=== PATIENT | female | born 1985 | race Caucasian/White ===

== ENCOUNTER 2017-03-05 14:58 | Emergency (ER) | payer OTHER ==
--- NOTE | ~2017-03-05 | CR243 ---
[facility]. [facility] A Service of [facility] RADIOLOGY TEXT RESULTS PATIENT: ESHA PURCELL LOCATION: SED : 86 UNIT #: [id number] AGE: [address]: YULIET NICHOLSON SEX: F ORDER DR: [id number] [place] [id number] E MR#: [id number] Acc #: [id number] NAME: ESHA PURCELL : 1985 SEX: F STUDY DATE/TIME: 03/05/2017 16:13 UNIT: SED ROOM: STUDY DESCRIPTION: CR Thoracic Spine 3 Views Attending Physician: Yuliet Nicholson Aprn Ordering Physician: Yuliet Nicholson Aprn Primary Care Physician: Fernando Infante M.D. MEDICAL IMAGING REPORT This report is preliminary unless electronic signature is present. EXAM Thoracic spine 3 views INDICATION Back pain for 4 days. COMPARISON No comparisons. FINDINGS There is very mild multilevel degenerative disc space narrowing. Vertebral body heights and alignment are maintained. IMPRESSION No acute thoracic spine abnormality. Dictated by... Alvaro Gonzales M.D. THIS IS AN ELECTRONICALLY VERIFIED REPORT Alvaro Gonzales M.D. at 03/07/2017 7:24 AM MILAGRO/laura TD: 03/05/2017 22:15 JOB #: [id number] MEDICAL IMAGING REPORT Page 1 of 1
--- NOTE | ~2017-03-05 | CR181 ---
[facility]. [facility] A Service of [facility] & [facility] RADIOLOGY TEXT RESULTS PATIENT: ESHA PURCELL LOCATION: SED : 86 UNIT #: [id number] AGE: [address]: YULIET NICHOLSON SEX: F ORDER DR: [id number] [place] [id number] E MR#: [id number] Acc #: [id number] NAME: ESHA PURCELL : 1985 SEX: F STUDY DATE/TIME: 03/05/2017 16:13 UNIT: SED ROOM: STUDY DESCRIPTION: CR Lumbar Spine 2 or 3 Views Attending Physician: Yuliet Nicholson Aprn Ordering Physician: Yuliet Nicholson Aprn Primary Care Physician: Fernando Infante M.D. MEDICAL IMAGING REPORT This report is preliminary unless electronic signature is present. EXAM Lumbar spine 3 views. INDICATION Back pain for 4 days. COMPARISON No comparisons. FINDINGS Vertebral body heights, alignment and disc spaces are maintained. IMPRESSION Negative. Dictated by... Alvaro Gonzales M.D. THIS IS AN ELECTRONICALLY VERIFIED REPORT Alvaro Gonzales M.D. at 03/07/2017 7:24 AM MILAGRO/laura TD: 03/05/2017 22:14 JOB #: [id number] MEDICAL IMAGING REPORT Page 1 of 1
[~2017-03-05 14:58] MED LIST: ABILIFY; ABILIFY PO; ABILIFY20 MG PO; ABILIFY30 MG; ABILIFY30 MG PO; ACETAMINOPHEN PO; ACID REDUCER75 M1 PO; ALBUTEROL0.83 MG/ML IH; ALBUTEROL17 GM; ALBUTEROL17 GM INH; AMOXICILLIN875 MG PO; AMOXIL875 MG PO; AUGMENTIN PO; BACTRIM 400-801 TA1 PO; BACTRIM DS TABL1 TA1 PO; BAYER ASPIRIN325 M1 PO; BENADRYL25 M3 PO; BIRTH CONTROL PILL PO; CELEXA PO; CHANTIX PO; CIPRO PO; COMBIVENT14.7 GM INH; DEPAKOTE PO; DEPO-PROVE150 MG/1 M IM; DEPO-PROVER150 MG/ML; DESYREL150 M1 PO; DICLOFENAC PO; DICLOFENAC SODI50 MG PO; DICYCLOMINE HCL20 MG PO; DIFLUCAN100 MG PO; DOCUSATE SODIU100 MG PO; ESKALITH PO; FLEXERIL PO; FLEXERIL10 MG PO; FLONASE 0.05% N16 G1; FLONASE16 GM; GABAPENTIN600 MG PO; IBUPROFEN PO; IBUPROFEN800 MG PO; KLONOPIN PO; KLONOPIN0.5 MG; KLONOPIN1 MG PO; LAMISIL PO; LASIX PO; LASIX20 MG; LORTAB 5/500 TA1 TA1; LORTAB 7.5-5001 TAB PO; LOTRIMIN 1% CR30 GM; LYRICA PO; MAGIC MOUTH WASH PO; MEDROL PO; MELATONIN3 MG; MOTRIN600 M1 PO; NAPROSYN-EC500 M1 PO; NAPROSYN500 MG PO; NEURONTIN; NEURONTIN800 MG PO; NO MEDICATIONS; OLANZAPINE ODT20 MG PO; ORTHO TRI-7 DAYS X PO; PEPCID PO; PERCOCET 10/3251 TAB PO; PERCOCET10 PO; PHENERGAN DM1 ML PO; PHENERGAN W/CO120 ML PO; PHENERGAN25 M1 PO; PHENERGAN25 MG; PHENERGAN25 MG PO; PREDNISONE PO; PRENATAL1 TA1 PO; PRILOSEC PO; PROCTOSOL-HC28.35 GM RC; PROZAC PO; QVAR7.3 G1; REGLAN PO; REGLAN5 MG PO; ROBAXIN PO; ROBITUSSIN-DM120 ML PO; SEROQUEL PO; SEROQUEL300 MG PO; SKELAXIN PO; SODIUM PHOSPHATE; SOMA PO; SUDAFED30 M1 PO; SYNTHROID PO; SYNTHROID0.2 MG PO; THORAZINE50 MG PO; TIROSINT50 MCG PO; TOPAMAX200 MG; TOPAMAX25 MG PO; TOPAMAX50 MG PO; ULTRAM PO; VESICARE PO; VIBRAMYCIN100 M1 PO; VICODIN 5/1 TAB 5/50 PO; VICODIN 5/500 T1 TAB PO; VISTARIL PO; VITAMIN D50000 UNIT PO; VOLTAREN75 MG PO; XANAX1 MG PO; XODOL 7.5-3001 EACH PO; ZITHROMAX PO; ZOFRAN ODT4 MG PO; ZOFRAN PO; ZOFRANODT PO; ZOLOFT50 MG PO; ZYRTEC10 M2; [UNRECOGNIZED DRUG - OTHER]; [UNRECOGNIZED DRUG - OTHER]
[2017-03-05] MEDS ORDERED: PHENERGAN (15:14)
[2017-03-05] MEDS ORDERED: ALBUTEROL17 GM (15:14)
[2017-03-05] MEDS ORDERED: GRALISE1 EACH (15:14)
[2017-03-05] MEDS ORDERED: SYNTHROID0.05 MG (15:14)
[2017-03-05 16:54] LABS: URINE SOURCE CLEAN CATCH
[2017-03-05 16:55] LABS: BASOPHIL# 0.1 X10e3 (0-0.3); EOSINOPHIL# 0.2 X10e3 (0-0.7); HEMATOCRIT 45.5 % (35.0-45.0); HEMOGLOBIN 15.5 gm/dL (12.0-16.0); LYMPHOCYTE# 3.7 X10e3 (1.0-3.5); LYMPHOCYTE% 32.9 % (17.0-45.0); MEAN CELL VOLUME 89.7 FL (83-96); MEAN CORPUSCULAR HEMOGLOBIN 30.7 PG (28-34); MEAN CORPUSCULAR HGB CONC 34.2 g/dL (30-36); MEAN PLATELET VOLUME 7.4 FL (6.5-11.5); MONOCYTE# 0.8 X10e3 (0-1.0); MONOCYTE% 7.1 % (3.0-12.0); NEUTROPHIL# 6.5 X10e3 (1.5-7.1); PLATELET COUNT 273 X10e3 (140-420); RED BLOOD COUNT 5.07 X10e (3.90-5.30); WHITE BLOOD COUNT 11.4 X10e3 (4.0-10.5)
[2017-03-05 16:56] LABS: URINE APPEARANCE CLEAR; URINE BILIRUBIN NEG (NEG); URINE BLOOD NEG (NEG); URINE COLOR YELLOW; URINE GLUCOSE NEG (NORM); URINE KETONE NEG (NEG); URINE LEUKOCYTE ESTERASE NEG (NEG); URINE NITRATE POS (NEG); URINE PROTEIN NEG (NEG); URINE SPECIFIC GRAVITY 1.015 (1.003-1.035); URINE UROBILINOGEN 0.2 MG/DL (NORM)
[2017-03-05 16:58] LABS: DIFF IND NO
[2017-03-05 17:14] LABS: ALBUMIN SERUM 4.5 g/dL (3.5-5.0); BILIRUBIN,TOTAL 0.8 mg/dL (0.2-2.0); GLOM FILT RATE Estimated 75.6 mL/min (>60); POTASSIUM 3.4 mmol/L (3.5-5.1); PROTEIN TOTAL SERUM 7.6 g/dL (6.0-8.3)
[2017-03-05 17:29] LABS: MICRO INDICATED? YES
[2017-03-05 17:37] LABS: CULTURE INDICATED? NO; URINE BACTERIA NEG (NEG); URINE RBC 0-2 /[HPF] (0-2); URINE SQUAMOUS EPITHELIAL CELL OCCAS /[HPF]; URINE WBC 0-2 /[HPF] (0-5)
== END 2017-03-05 18:00 | disposition home or self-care (01) ==
LOC: SED 14:58
PROVIDERS: Nurse Practitioner Family
DX: S39.012A Strain of muscle, fascia and tendon of lower back, initial encounter (principal); F41.9 Anxiety disorder, unspecified; Z90.49 Acquired absence of other specified parts of digestive tract; F17.210 Nicotine dependence, cigarettes, uncomplicated; W19.XXXA Unspecified fall, initial encounter; Y92.9 Unspecified place or not applicable
CPT/HCPCS: 36415; 72072; 72100; 80053; 81003; 82150; 83690; 85025; 96372; 96374; 99284; J1885; J2060

== ENCOUNTER 2017-04-04 14:38 | Emergency (ER) | payer OTHER ==
--- NOTE | ~2017-04-04 | EKG ---
PATIENT: ESHA PURCELL UNIT #: [id number] Ventricular Rate: 94 BPM Atrial Rate: 94 BPM P-R Interval: 132 ms QRS Duration: 80 ms Q-T Interval: 360 ms QTC Calculation(Bezet): 450 ms P [place]: 33 degrees Calculated R [place]: 39 degrees Calculated T [place]: 22 degrees Diagnosis Line: Normal sinus rhythm Diagnosis Line: Normal ECG Diagnosis Line: When compared with ECG of 01-JAN-2017 22:26, Diagnosis Line: No significant change was found Diagnosis Line: Confirmed by DUSTY MOLINA MD ([id number]) on Diagnosis Line: 04/06/2017 3:42:43 PM INTERPRETING MD: DONNY
[~2017-04-04 14:38] MED LIST changes: +GRALISE1 EACH; +PHENERGAN; +SYNTHROID0.05 MG
[2017-04-04 19:50] LABS: BASOPHIL% 0.5 % (0-2.5); EOSINOPHIL# 0.2 X10e3 (0-0.7); EOSINOPHIL% 2.7 % (0.0-7.0); HEMATOCRIT 45.3 % (35.0-45.0); HEMOGLOBIN 15.1 gm/dL (12.0-16.0); LYMPHOCYTE# 3.1 X10e3 (1.0-3.5); LYMPHOCYTE% 36.4 % (17.0-45.0); MEAN CELL VOLUME 91.1 FL (83-96); MEAN CORPUSCULAR HEMOGLOBIN 30.3 PG (28-34); MEAN CORPUSCULAR HGB CONC 33.2 g/dL (30-36); MEAN PLATELET VOLUME 7.5 FL (6.5-11.5); MONOCYTE# 0.5 X10e3 (0-1.0); MONOCYTE% 6.3 % (3.0-12.0); NEUTROPHIL# 4.6 X10e3 (1.5-7.1); NEUTROPHIL% 54.1 % (40-75); PLATELET COUNT 249 X10e3 (140-420); RED BLOOD COUNT 4.97 X10e (3.90-5.30); RED CELL DISTRIBUTION WIDTH 13.9 % (11.0-15.5); WHITE BLOOD COUNT 8.5 X10e3 (4.0-10.5)
[2017-04-04 19:51] LABS: DIFF IND NO
[2017-04-04 19:54] LABS: ALBUMIN SERUM 4.1 g/dL (3.5-5.0); BILIRUBIN, DIRECT 0.1 mg/dL (0.0-0.2); BILIRUBIN,INDIRECT 0.7 mg/dL (0.0-0.9); BILIRUBIN,TOTAL 0.8 mg/dL (0.2-2.0); BUN/CREATININE RATIO 12.5; CREATININE SERUM 0.8 mg/dL (0.6-1.4); POTASSIUM 3.6 mmol/L (3.5-5.1); PROTEIN TOTAL SERUM 7.2 g/dL (6.0-8.3)
[2017-04-04 20:02] LABS: POC - CKMB <1.0 ng/mL (0.0-7.9); POC - TROPONIN <0.05 ng/mL (<=0.05)
[2017-04-04 20:16] LABS: AMPHETAMINE POS (NEG); BARBITURATES NEG (NEG); BENZODIAZEPINES POS (NEG); COCAINE NEG (NEG); MARIJUANA POS (NEG); OPIATES NEG (NEG); TRICYCLIC ANTIDEPRESSANTS NEG (NEG); U METHADONE NEG (NEG)
[2017-04-04] MEDS ORDERED: TIROSINT50 MCG PO (20:36)
[2017-04-04] MEDS ORDERED: GABAPENTIN600 MG PO (20:36)
[2017-04-04] MEDS ORDERED: LOPRESSOR PO (20:37)
[2017-04-04] MEDS ORDERED: ZYPREXA20 MG PO (20:37)
[2017-04-04] MEDS ORDERED: SYMBICORT (20:37)
[2017-04-04] MEDS ORDERED: NAPROSYN-EC500 M1 PO (20:38)
[2017-04-04 21:23] LABS: URINE SOURCE CLEAN CATCH
[2017-04-04 21:27] LABS: URINE APPEARANCE CLOUDY; URINE BILIRUBIN NEG (NEG); URINE BLOOD NEG (NEG); URINE COLOR YELLOW; URINE GLUCOSE NEG (NEG); URINE KETONE NEG (NEG); URINE LEUKOCYTE ESTERASE NEG (NEG); URINE NITRATE NEG (NEG); URINE PH 7.5 (5-8); URINE PROTEIN NEG (NEG); URINE SPECIFIC GRAVITY 1.021 (1.003-1.035); URINE UROBILINOGEN 0.2 MG/DL (NEG)
[2017-04-04 21:32] LABS: CULTURE INDICATED? NO
== END 2017-04-04 22:08 | disposition home or self-care (01) ==
LOC: CED 14:38
PROVIDERS: Emergency Medicine
DX: R10.9 Unspecified abdominal pain (principal); M54.9 Dorsalgia, unspecified; G89.29 Other chronic pain; F15.10 Other stimulant abuse, uncomplicated; F12.10 Cannabis abuse, uncomplicated; F19.10 Other psychoactive substance abuse, uncomplicated; F41.9 Anxiety disorder, unspecified; N80.9 Endometriosis, unspecified; F17.200 Nicotine dependence, unspecified, uncomplicated; Z88.8 Allergy status to other drugs, medicaments and biological substances; Z79.899 Other long term (current) drug therapy
CPT/HCPCS: 36415; 80048; 80076; 80307; 81003; 82553; 84484; 84703; 85025; 93005; 96361; 96374; 99284; J2550

== ENCOUNTER 2017-06-17 15:17 | Emergency (ER) | payer OTHER ==
[~2017-06-17] VITALS: Ht 170.2 cm; Wt 99.8 kg
--- NOTE | ~2017-06-17 | CR63 ---
[facility] A Service [facility] RADIOLOGY TEXT RESULTS PATIENT: ESHA PURCELL LOCATION: SED : 86 UNIT #: [id number] AGE: [address]: Earl Hale MD SEX: F ORDER DR: [id number] [place] [id number] E MR#: [id number] Acc #: [id number] NAME: ESHA PURCELL : 1985 SEX: F STUDY DATE/TIME: 06/17/2017 17:36 UNIT: SED ROOM: STUDY DESCRIPTION: CR Chest 2 View Attending Physician: Earl Hale M.D. Ordering Physician: Earl Hale M.D. Primary Care Physician: Fernando Infante M.D. MEDICAL IMAGING REPORT This report is preliminary unless electronic signature is present. EXAM Chest 2 views dated 06/17/2017 COMPARISON Chest 2 views dated 01/02/2017. HISTORY Congestion and cough for 2 days. FINDINGS 2 views of the chest were obtained. PA and lateral examination of the chest upright shows a good expansion of the parenchyma with a normal distribution of the pulmonary vascularity. There is no indication of congestion, effusion, infiltrate, tumor, or nodular density. The pleural reflections and diaphragmatic contours are normal. The cardiac silhouette and mediastinal anatomy is within normal limits. IMPRESSION Normal chest. Dictated by... Miley Alfaro M.D. THIS IS AN ELECTRONICALLY VERIFIED REPORT Miley Alfaro M.D. at 06/20/2017 9:15 AM CPR/aa TD: 06/18/2017 09:42 JOB #: [id number] MEDICAL IMAGING REPORT [facility] A Service [facility] RADIOLOGY TEXT RESULTS PATIENT: ESHA PURCELL LOCATION: SED : 86 UNIT #: [id number] AGE: [address]: Earl Hale MD SEX: F ORDER DR: Page 1 of 1
[~2017-06-17 15:17] MED LIST changes: +LOPRESSOR PO; +SYMBICORT; +ZYPREXA20 MG PO
[2017-06-17] MEDS ORDERED: LORTAB 5-325 M1 EACH PO (15:29)
[2017-06-17 17:07] LABS: BASOPHIL% 0.3 % (0-2.5); EOSINOPHIL# 0.2 X10e3 (0-0.7); EOSINOPHIL% 1.4 % (0.0-7.0); HEMATOCRIT 44.5 % (35.0-45.0); HEMOGLOBIN 15.1 gm/dL (12.0-16.0); LYMPHOCYTE# 2.8 X10e3 (1.0-3.5); LYMPHOCYTE% 23.6 % (17.0-45.0); MEAN CELL VOLUME 90.1 FL (83-96); MEAN CORPUSCULAR HEMOGLOBIN 30.6 PG (28-34); MEAN PLATELET VOLUME 7.3 FL (6.5-11.5); MONOCYTE# 1.1 X10e3 (0-1.0); MONOCYTE% 9.8 % (3.0-12.0); NEUTROPHIL# 7.6 X10e3 (1.5-7.1); NEUTROPHIL% 64.9 % (40-75); PLATELET COUNT 267 X10e3 (140-420); RED BLOOD COUNT 4.93 X10e (3.90-5.30); RED CELL DISTRIBUTION WIDTH 13.6 % (11.0-15.5); WHITE BLOOD COUNT 11.8 X10e3 (4.0-10.5)
[2017-06-17 17:08] LABS: DIFF IND NO
[2017-06-17 17:26] LABS: ALBUMIN SERUM 4.3 g/dL (3.5-5.0); BILIRUBIN, DIRECT 0.2 mg/dL (0.0-0.2); BILIRUBIN,INDIRECT 0.7 mg/dL (0.0-0.9); BILIRUBIN,TOTAL 0.9 mg/dL (0.2-2.0); BUN/CREATININE RATIO 11.11; CALCIUM SERUM 9.3 mg/dL (8.4-10.2); CREATININE SERUM 0.9 mg/dL (0.6-1.4); GLOM FILT RATE Estimated 85.9 mL/min (>60); POTASSIUM 3.5 mmol/L (3.5-5.1); PROTEIN TOTAL SERUM 7.3 g/dL (6.0-8.3)
[2017-06-17 18:01] LABS: INFLUENZA A NEG (NEG); INFLUENZA B NEG (NEG)
== END 2017-06-17 18:25 | disposition home or self-care (01) ==
LOC: SED 15:17
PROVIDERS: Emergency Medicine
DX: J20.9 Acute bronchitis, unspecified (principal); J01.00 Acute maxillary sinusitis, unspecified; J01.20 Acute ethmoidal sinusitis, unspecified; I10 Essential (primary) hypertension; F20.9 Schizophrenia, unspecified; F31.9 Bipolar disorder, unspecified; Z90.710 Acquired absence of both cervix and uterus; Z90.49 Acquired absence of other specified parts of digestive tract; Z90.89 Acquired absence of other organs; F17.210 Nicotine dependence, cigarettes, uncomplicated; Z79.899 Other long term (current) drug therapy; Z88.8 Allergy status to other drugs, medicaments and biological substances
CPT/HCPCS: 36415; 71020; 80048; 80076; 84703; 85025; 87804; 94640; 96361; 96374; 96375; 99283; J2550; J2930

== ENCOUNTER 2017-06-22 01:34 | Emergency (ER) | payer OTHER ==
[~2017-06-22] VITALS: Ht 170.2 cm; Wt 108.9 kg
[~2017-06-22 01:34] MED LIST changes: +LORTAB 5-325 M1 EACH PO
[2017-06-22 02:07] LABS: URINE APPEARANCE SL CLOUDY; URINE BLOOD NEG (NEG); URINE COLOR YELLOW; URINE GLUCOSE NEG (NORM); URINE KETONE NEG (NEG); URINE NITRATE NEG (NEG); URINE PH 5.5 (5-8); URINE SOURCE CLEAN CATCH; URINE SPECIFIC GRAVITY >=1.030 (1.003-1.035)
[2017-06-22 02:15] LABS: MICRO INDICATED? NO; URINE BILIRUBIN NEG (NEG); URINE LEUKOCYTE ESTERASE NEG (NEG); URINE PROTEIN NEG (NEG)
[2017-06-22 02:27] LABS: AMPHETAMINE POS (NEG); BARBITURATES NEG (NEG); BENZODIAZEPINES NEG (NEG); COCAINE NEG (NEG); MARIJUANA POS (NEG); OPIATES POS (NEG); TRICYCLIC ANTIDEPRESSANTS NEG (NEG); U METHADONE NEG (NEG)
== END 2017-06-22 06:33 ==
LOC: SED 01:34
DX: R45.851 Suicidal ideations (principal); F15.10 Other stimulant abuse, uncomplicated; F12.10 Cannabis abuse, uncomplicated; F11.10 Opioid abuse, uncomplicated; F31.9 Bipolar disorder, unspecified; F17.200 Nicotine dependence, unspecified, uncomplicated; Z88.8 Allergy status to other drugs, medicaments and biological substances; Z79.899 Other long term (current) drug therapy
CPT/HCPCS: 80307; 81003; 84703; 99285

== ENCOUNTER 2017-06-22 04:00 | Inpatient (IN) | payer OTHER ==
[~2017-06-22] VITALS: Ht 170.2 cm; Wt 108.9 kg
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
--- NOTE | ~2017-06-22 | HP ---
Unit #: [id number] #: [id number] Patient: SARA PURCELL [id number] [place] [address] [id number] I MR#: [id number] NAME: SARA PURCELL. ROOM: [facility] Age: 31 Sex: F Admission Date: 06/22/2017 : 1985 Attending Physician: Yash Morrison M.D. Admitting Physician: Yash Morrison M.D. Primary Care Physician: Fernando Infante M.D. HISTORY AND PHYSICAL HISTORY OF PRESENT ILLNESS Sara is a 31 year old admitted to [facility] with depression and verbalizing wanting to hurt herself. PAST MEDICAL HISTORY 1. Long history of illicit substance abuse to include marijuana, opioids and amphetamines. 2. Hypothyroidism. PAST SURGICAL HISTORY 1. Pelvic lap. 2. Cholecystectomy. 3. T and A. ALLERGIES No known drug allergies. Adhesive. SOCIAL HISTORY Smokes 1 pack per day. Drinks alcohol rarely. Admits to smoking marijuana and has a history of other illicit substance abuse to include opioids, benzodiazepines and methamphetamine. FAMILY HISTORY Medically noncontributory. REVIEW OF SYSTEMS CONSTITUTIONAL: No fever or chills. HEENT: Denies any sore throat, ear pain or runny nose. CARDIOVASCULAR: Denies chest pain, irregular heart rhythm or palpitations. CHEST: Denies shortness of breath or cough. No hemoptysis. GASTROINTESTINAL: Denies nausea, vomiting, diarrhea or chronic constipation. ENDOCRINE: Denies history of increased thirst or urination. No recent significant weight loss or gain. GENITOURINARY: Denies dysuria, frequency, or hematuria. SKIN: Denies any rashes. HEMATOLOGIC: Denies history of increased bleeding or bruising. MUSCULOSKELETAL: Denies any hot, swollen joints. No generalized muscle pain. NEUROLOGIC: Denies problems with vision or speech. No frequent, severe headaches. No numbness, tingling or weakness in any extremities. Denies loss of bladder or bowel control. Unit #: [id number] #: [id number] Patient: SARA PURCELL CURRENT MEDICATIONS 1. Zanaflex 4 mg q.h.s. 2. Geodon 40 mg b.i.d. 3. Synthroid 0.05 mg daily. 4. Neurontin 600 mg q.i.d. 5. Proventil inhaler p.r.n. 6. Phenergan p.r.n. 7. Milk of Magnesia p.r.n. 8. Maalox p.r.n. 9. Tylenol p.r.n. 10. Loperamide p.r.n. PHYSICAL EXAMINATION GENERAL: Alert, obese, in no apparent distress. VITAL SIGNS: Blood pressure 120/70, heart rate 80, respirations 16, temperature 98.6. WEIGHT: 220. HEIGHT: 5 feet 7 inches. SKIN: Warm and dry without rash or lesion. HEENT: Normocephalic. TMs not viewed. Oral and nasal passages clear. Conjunctivae clear. PERRLA. EOMs intact. NECK: Supple without lymphadenopathy or thyromegaly. HEART: Regular rate and rhythm without murmur. LUNGS: Clear. ABDOMEN: Soft, nontender. : Not done. EXTREMITIES: No evidence of cyanosis, clubbing or edema. Moves all without focal deficit. NEUROLOGICAL: Grossly within normal limits. Cranial Nerves: II: Visual trujillo are intact. III, IV AND : Extraocular movements are intact. Pupils are equal, round and reactive to light. V: Facial sensation is grossly normal. VII: Facial movements and expression are normal. VIII: Auditory acuity grossly intact. IX, X: Uvula is midline. Phonation is normal. XI: Patient shrugs shoulders and turns head normally. XII: Tongue protrudes in the midline. Sensory and Motor Function: Sensory and motor sensation is grossly normal. Motor: moves all extremities well. Coordination: Gait is normal. Deep Tendon Reflexes: Intact. IMPRESSION Psychiatric admission. RECOMMENDATIONS PSYCHIATRIC: Per psychiatrist. MEDICAL: See no contraindication to participate in facility's activities. MEDICAL PROGNOSIS Good. MEDICAL CONDITION Stable. Dictated by... Sho Alvarado P.A.-C. for Unit #: [id number] #: [id number] Patient: SARA PURCELL Avila Carias/emili TD: 06/22/2017 21:05 JOB #: [id number] HISTORY AND PHYSICAL Page 1 of 1 X Sho Alvarado X HISTORY AND PHYSICAL
--- NOTE | ~2017-06-22 | PN ---
Unit #: [id number] #: [id number] Patient: ESHA PURCELL [id number] [facility] [address] [place] [address] [id number] I MR#: [id number] NAME: ESHA PURCELL ROOM: 86 Age: 31 Sex: F Admission Date: 06/22/2017 : 1985 Attending Physician: Yash Morrison M.D. Admitting Physician: Yash Morrison M.D. Primary Care Physician: Avila Elise PROGRESS NOTES DATE 06/23/2017 DISCUSSION Upon today's assessment Ms. Purcell was found sitting in the dayroom interacting with peers and appearing in no apparent discomfort. She has complaints at this time of a cough that she has had for some time and stated that it has lingered and she would like to see medical staff regarding this. She currently denies any suicidal ideation or homicidal ideation and verbalized no plan or intent. She denied auditory or visual hallucinations and no overt symptoms of psychosis was noted at this time. PLAN Write for medical consult in relating to the patient's cough and chest congestion and continue to monitor q 15 minutes checks for safety. Dictated by... Laura Castorena/tan TD: 06/26/2017 23:17 JOB #: [id number] [facility] PROGRESS NOTES Page 1 of 1 X Luz Bentley PROGRESS NOTE
--- NOTE | ~2017-06-22 | DS ---
Unit #: [id number] #: [id number] Patient: SARA PURCELL [id number] [place] [address] [id number] I MR#: [id number] NAME: SARA PURCELL. ROOM: [facility] Age: 31 Sex: F Admission Date: 06/22/2017 : 1985 Discharge Date: 06/24/2017 Attending Physician: Yash Morrison M.D. Primary Care Physician: Fernando Infante M.D. DISCHARGE SUMMARY REASON FOR ADMISSION Sara is a 31-year-old woman with a history of mood disorder and polysubstance dependence who presented reporting vague suicidal ideation. She was not able to contract for safety and was admitted for stabilization. DIAGNOSTIC STUDIES LABORATORY DATA: Please see hospital chart. HOSPITAL COURSE The patient was admitted and placed on suicide precautions. Geodon was substituted for Zyprexa, which the patient reported was too sedating. She was continued on Neurontin, albuterol, vitamin D, Synthroid, Zanaflex, Zyprexa and [place] were all discontinued. The patient had an uneventful period of detox with no significant emotional symptoms. He did not appear to have any detox symptoms at all. She was able to contract for safety the following day and discharged to [facility]. DISCHARGE DIAGNOSES Reeders I Bipolar depressed, history of opiate dependence. Reeders II Diagnosis deferred. Reeders III Chronic pain, asthma, hypothyroidism. Reeders IV Reeders V INSTRUCTED THE PATIENT Followup with chemical dependence programming of your choice and primary care physician. DISCHARGE MEDICATIONS Geodon 40 mg twice daily for a period. Other medications were: 1. Neurontin 600 mg 4 times a day for neuropathy. 2. Albuterol one puff every 4 hours as needed for shortness of air. 3. Vitamin D 5,000 units once a week for vitamin D replacement. 4. Synthroid 50 mcg daily for hypothyroidism. 5. Zanaflex 4 mg at bedtime. CONDITION AT DISCHARGE Fair. PROGNOSIS Fair. Unit #: [id number] #: [id number] Patient: SARA PURCELL DIET AND ACTIVITY Per primary care doctor. Dictated by... Yash Morrison M.D. [facility]/ts TD: 07/03/2017 08:58 JOB #: [id number] DISCHARGE SUMMARY Page 1 of 1 X Yash Morrison MD DISCHARGE SUMMARY
--- NOTE | ~2017-06-22 | CO ---
Unit #: [id number] #: [id number] Patient: ESHA PURCELL [id number] [place] [address] [id number] I MR#: [id number] NAME: ESHA PURCELL. ROOM: [facility] Age: 31 Sex: F Admission Date: 06/22/2017 : 1985 Attending Physician: Yash Morrison M.D. Primary Care Physician: Fernando Infante M.D. Consultation Date: 06/24/2017 CONSULTATION REPORT ORDERING PROVIDER Dr. Morrison. REASON FOR CONSULTATION Cough. SUBJECTIVE The patient reports that she has had cough and congestion for about 1 week. She reports that the cough is productive. She denies any wheezing, shortness of breath, or upper respiratory complaints. OBJECTIVE Her lungs are clear to auscultation bilaterally. Her vital signs are stable. Examination was otherwise unremarkable. ASSESSMENT Viral bronchitis. PLAN Plan is to give Robitussin DM for cough. Continue to monitor. Dictated by... Hawa Concepcion A.P.R.N. for Avila Corbin/berna TD: 06/25/2017 03:50 JOB #: [id number] CONSULTATION REPORT Page 1 of 1 X HAWA CONCEPCION APRN CONSULTATION REPORT
[2017-06-23 12:46] LABS: BASOPHIL# 0.1 X10e3 (0-0.3); BASOPHIL% 0.6 % (0-2.5); EOSINOPHIL# 0.2 X10e3 (0-0.7); EOSINOPHIL% 1.6 % (0.0-7.0); HEMOGLOBIN 16.9 gm/dL (12.0-16.0); LYMPHOCYTE# 3.9 X10e3 (1.0-3.5); LYMPHOCYTE% 30.9 % (17.0-45.0); MEAN CELL VOLUME 89.6 FL (83-96); MEAN CORPUSCULAR HEMOGLOBIN 30.3 PG (28-34); MEAN CORPUSCULAR HGB CONC 33.8 g/dL (30-36); MEAN PLATELET VOLUME 7.7 FL (6.5-11.5); MONOCYTE# 0.7 X10e3 (0-1.0); MONOCYTE% 5.8 % (3.0-12.0); NEUTROPHIL# 7.7 X10e3 (1.5-7.1); NEUTROPHIL% 61.1 % (40-75); PLATELET COUNT 304 X10e3 (140-420); RED BLOOD COUNT 5.58 X10e (3.90-5.30); RED CELL DISTRIBUTION WIDTH 13.6 % (11.0-15.5); WHITE BLOOD COUNT 12.6 X10e3 (4.0-10.5)
[2017-06-23 12:47] LABS: DIFF IND NO
[2017-06-23 13:10] LABS: ALBUMIN SERUM 4.1 g/dL (3.5-5.0); BILIRUBIN,TOTAL 1.5 mg/dL (0.2-2.0); BUN/CREATININE RATIO 14.44; CALCIUM SERUM 9.3 mg/dL (8.4-10.2); CREATININE SERUM 0.9 mg/dL (0.6-1.4); GLOM FILT RATE Estimated 85.9 mL/min (>60); POTASSIUM 3.5 mmol/L (3.5-5.1)
== END 2017-06-24 13:50 | disposition home or self-care (01) | DRG 881 ==
LOC: P1E 07:37
PROVIDERS: Psychiatry & Neurology Psychiatry
DX: F32.9 Major depressive disorder, single episode, unspecified (principal); E03.9 Hypothyroidism, unspecified; G89.29 Other chronic pain; Z90.49 Acquired absence of other specified parts of digestive tract; F17.200 Nicotine dependence, unspecified, uncomplicated; R05 Cough
CPT/HCPCS: 80053; 84703; 85025